=== PATIENT | female | born 1965 | race Native Hawaiian/Other Pacific Islander ===

== ENCOUNTER 2018-01-17 03:11 | Emergency (ER) | payer SELFPAY ==
[~2018-01-17] VITALS: Ht 154.9 cm; Wt 49.9 kg
--- NOTE | 2018-01-17 03:29 | NUR ---
CALLED, NO ANSWER IN WAITING ROOM.
[2018-01-17 03:35] VITALS: BP 122/87
[2018-01-17] MEDS ORDERED: TETRACAINE HCL/PF 0.5% UD 2 ML BOTTLE OP ONE (04:00)
[2018-01-17] MEDS ORDERED: FLUORESCEIN SODIUM OPHTH 1 EA STRIP OP ONE (04:00)
[2018-01-17] MEDS ORDERED: TETRACAINE HCL/PF 0.5% UD 2 ML BOTTLE ONE (04:05)
[2018-01-17] MEDS ORDERED: FLUORESCEIN SODIUM OPHTH 1 EA STRIP ONE (04:05)
[2018-01-17] MEDS ORDERED: TOBRAMYCIN OPHTH 5ML 5 ML BOTTLE LEFTEYE STA (04:31)
[2018-01-17] MEDS ORDERED: GENTAMICIN OPTH SOLN 0.3% 5 ML BOTTLE ONE (04:48)
[2018-01-17] MEDS ORDERED: GENTAMICIN OPTH SOLN 0.3% 5 ML BOTTLE OP ONE (05:00)
== END 2018-01-17 04:56 | disposition home or self-care (01) ==
LOC: ER 03:11
DX: H16.012 Central corneal ulcer, left eye (principal)
CPT/HCPCS: 99284; A4606; Z7610